=== PATIENT | male | born 1945 | race African-American/Black ===

== ENCOUNTER 2018-05-21 20:08 | Emergency (ER) | payer MEDICARE, MEDICAID ==
[~2018-05-21] VITALS: Ht 175.3 cm; Wt 71.0 kg
[2018-05-21] MEDS ORDERED: IBUPROFEN 600MG TABLET PO ONE (23:45)
[2018-05-22 01:06] VITALS: BP 147/72
== END 2018-05-22 01:09 | disposition home or self-care (01) ==
LOC: ER 20:08
DX: M25.531 Pain in right wrist (principal); H40.9 Unspecified glaucoma; F17.200 Nicotine dependence, unspecified, uncomplicated; W01.0XXA Fall on same level from slipping, tripping and stumbling without subsequent striking against object, initial encounter; Y93.89 Activity, other specified; Y92.89 Other specified places as the place of occurrence of the external cause; Y99.8 Other external cause status; Z93.3 Colostomy status; Z98.890 Other specified postprocedural states
CPT/HCPCS: 29125; 73110; 73130; 99284

== ENCOUNTER 2020-01-09 11:34 | Emergency (ER) | payer MEDICARE, MEDICAID ==
[~2020-01-09] VITALS: Ht 175.3 cm; Wt 76.4 kg
[2020-01-09 13:26] LABS: BASOPHILS % 0.3 % (0.0-2.0); EOSINOPHILS % 0.6 % (0.0-5.0); HEMATOCRIT. 40.2 % (42.0-52.0); HEMOGLOBIN. 13.9 g/dL (14.0-18.0); LYMPHOCYTES % 8.1 % (20.0-50.0); MEAN CORPUSCULAR HEMOGLOBIN 32.4 pg (28.0-32.0); MEAN CORPUSCULAR VOLUME 93.6 fL (80.0-94.0); MEAN PLATELET VOLUME 8.8 fl (7.4-10.4); MONOCYTES % 8.7 % (2.0-8.0); NEUTROPHILS % 82.3 % (40.0-76.0); PLATELET 171 x1000/uL (130-400); RED BLOOD CELL COUNT 4.29 mill/uL (4.7-6.1); RED CELL DISTRIBUTION WIDTH 12.5 % (11.6-14.6)
[2020-01-09 13:32] LABS: CHLORIDE 101 mEq/L (98-107)
[2020-01-10] MEDS ORDERED: IPRATROPIUM BROMIDE (0.02%) 0.5MG/2.5ML NEB HHN STA (01:08)
[2020-01-10] MEDS ORDERED: ALBUTEROL (0.083%) 2.5MG/3ML NEB HHN STA (01:08)
[2020-01-10 04:34] VITALS: BP 131/72
== END 2020-01-10 05:15 | disposition home or self-care (01) ==
LOC: ER 11:34
DX: J40 Bronchitis, not specified as acute or chronic (principal); F17.290 Nicotine dependence, other tobacco product, uncomplicated; H40.9 Unspecified glaucoma; Z98.890 Other specified postprocedural states; Z93.3 Colostomy status
CPT/HCPCS: 36415; 71045; 80053; 85025; 87804; 93005; 94640; 99285

== ENCOUNTER 2020-06-04 05:40 | Inpatient (IN) | payer MEDICARE, MEDICAID ==
[~2020-06-04] VITALS: Ht 175.3 cm; Wt 72.6 kg
[2020-06-04] MEDS ORDERED: SODIUM CHLORIDE 0.9% 1,000 ML IV ONE (06:48)
[2020-06-04] MEDS ORDERED: ONDANSETRON HCL 4MG/2ML INJ IV STA (06:48)
[2020-06-04] MEDS ORDERED: MORPHINE SULFATE 4 MG/ML CPJ (NOT FOR IM USE) IV STA (06:48)
[2020-06-04 06:56] LABS: BASOPHILS % 0.5 % (0.0-2.0); EOSINOPHILS % 1.3 % (0.0-5.0); HEMATOCRIT. 46.4 % (42.0-52.0); HEMOGLOBIN. 15.8 g/dL (14.0-18.0); LYMPHOCYTES % 8.3 % (20.0-50.0); MEAN CORPUSCULAR HEMOGLOBIN 32.1 pg (28.0-32.0); MEAN CORPUSCULAR VOLUME 94.5 fL (80.0-94.0); MEAN PLATELET VOLUME 8.6 fl (7.4-10.4); MONOCYTES % 3.9 % (2.0-8.0); PLATELET 196 x1000/uL (130-400); RED BLOOD CELL COUNT 4.91 mill/uL (4.7-6.1); RED CELL DISTRIBUTION WIDTH 12.6 % (11.6-14.6)
[2020-06-04 07:00] LABS: CHLORIDE 102 mEq/L (98-107)
[2020-06-04 07:02] LABS: PROTHROMBIN TIME 10.8 sec (9.6-11.0)
[2020-06-04 07:38] LABS: CLARITY URINE CLEAR (CLEAR); COLOR URINE YELLOW (YELLOW); KETONES URINE TRACE (NEGATIVE); LEUKOCYTE ESTERASE URINE NEGATIVE (NEGATIVE); NITRITE URINE NEGATIVE (NEGATIVE); OCCULT BLOOD URINE 2+ (NEGATIVE); PROTEIN URINE 1+ (NEGATIVE); SPECIFIC GRAVITY URINE 1.022 (1.005-1.030)
[2020-06-04 15:40] LABS: HEPATITIS B SURFACE ANTIGEN NEGATIVE
[2020-06-04 16:08] LABS: HEPATITIS A AB IGM NEGATIVE (NEGATIVE)
[2020-06-04] MEDS ORDERED: ONDANSETRON HCL 4MG/2ML INJ IV PRN (16:45)
[2020-06-04] MEDS ORDERED: HYDRALAZINE 20MG/ML VIAL IV PRN (16:45)
[2020-06-04] MEDS ORDERED: CLONIDINE 0.1MG TABLET PO PRN (16:45)
[2020-06-04] MEDS ORDERED: ACETAMINOPHEN 325MG TABLET PO PRN (16:45)
[2020-06-04] MEDS ORDERED: IPRATROPIUM/ALBUTEROL 0.5-3(2.5)MG/3ML NEB HHN PRN (16:45)
[2020-06-04] MEDS ORDERED: DIPHENHYDRAMINE 50MG/ML VIAL IV PRN (16:45)
[2020-06-04] MEDS: MORPHINE SULFATE 2 MG/ML CPJ (NOT FOR IM USE) IV PRN (17:34)
[2020-06-04 17:49] VITALS: BP 149/75
[2020-06-04] MEDS: ENOXAPARIN 40MG/0.4ML SYR SUBCUT SCH (18:03)
[2020-06-04] MEDS: DEXT 5%/0.45% NACL 1000ML 1,000 ML IV SCH (19:45)
[2020-06-04 20:00] VITALS: BP 127/78
[2020-06-04] MEDS: FAMOTIDINE 20MG/2ML VIAL IV SCH (20:56)
[2020-06-04] MEDS ORDERED: ZOLPIDEM TARTRATE 5MG TABLET PO PRN (21:00)
[2020-06-05] VITALS (7 sets, daily range): BP systolic 112–159; BP diastolic 69–91
[2020-06-05] MEDS: DEXT 5%/0.45% NACL 1000ML 1,000 ML IV SCH ×3 (05:20→17:42)
[2020-06-05] MEDS: MORPHINE SULFATE 2 MG/ML CPJ (NOT FOR IM USE) IV PRN ×2 (05:47→15:41)
[2020-06-05 06:52] LABS: BASOPHILS % 0.4 % (0.0-2.0); EOSINOPHILS % 5.4 % (0.0-5.0); HEMATOCRIT. 40.5 % (42.0-52.0); HEMOGLOBIN. 13.8 g/dL (14.0-18.0); MEAN PLATELET VOLUME 8.4 fl (7.4-10.4); MONOCYTES % 8.7 % (2.0-8.0); NEUTROPHILS % 62.5 % (40.0-76.0); PLATELET 124 x1000/uL (130-400); RED BLOOD CELL COUNT 4.31 mill/uL (4.7-6.1); RED CELL DISTRIBUTION WIDTH 12.5 % (11.6-14.6)
[2020-06-05 06:58] LABS: CHLORIDE 104 mEq/L (98-107)
[2020-06-05 07:10] LABS: PHOSPHORUS 3.3 mg/dL (2.5-4.9)
[2020-06-05] MEDS: FAMOTIDINE 20MG/2ML VIAL IV SCH ×2 (08:44→19:52)
[2020-06-05] MEDS: NICOTINE 14MG PATCH TD SCH (08:44)
[2020-06-05] MEDS ORDERED: DIATR MEGLU/DIATRIZOATE SOLN 120ML ONE (13:08)
[2020-06-05] MEDS: ENOXAPARIN 40MG/0.4ML SYR SUBCUT SCH (17:42)
[2020-06-06] VITALS: BP 130/69
[2020-06-06] MEDS: DEXT 5%/0.45% NACL 1000ML 1,000 ML IV SCH ×2 (01:00→08:33)
[2020-06-06 04:00] VITALS: BP 126/63
[2020-06-06 08:00] VITALS: BP 137/70
[2020-06-06] MEDS: FAMOTIDINE 20MG/2ML VIAL IV SCH (08:32)
[2020-06-06] MEDS: NICOTINE 14MG PATCH TD SCH (08:33)
[2020-06-06 12:00] VITALS: BP 148/70
[2020-06-06 16:00] VITALS: BP 147/74
[2020-06-06 16:35] VITALS: BP 147/74
== END 2020-06-06 16:55 | disposition home or self-care (01) | DRG 389 ==
LOC: ER 06:01 → 8WST 10:14 → ENRESERV 15:15
PROVIDERS: ADMIT Internal Medicine; ATTEND Internal Medicine
DX: K56.600 Partial intestinal obstruction, unspecified as to cause (principal); J84.9 Interstitial pulmonary disease, unspecified; K52.9 Noninfective gastroenteritis and colitis, unspecified; K56.7 Ileus, unspecified; B19.20 Unspecified viral hepatitis C without hepatic coma; E86.0 Dehydration; J45.909 Unspecified asthma, uncomplicated; F17.210 Nicotine dependence, cigarettes, uncomplicated; E11.65 Type 2 diabetes mellitus with hyperglycemia; K57.90 Diverticulosis of intestine, part unspecified, without perforation or abscess without bleeding; L91.0 Hypertrophic scar; Z93.3 Colostomy status; Z83.3 Family history of diabetes mellitus
CPT/HCPCS: 36415; 74018; 74176; 74249; 80053; 81003; 83036; 83735; 84100; 85025; 86705; 86709; 86803; 87340; 99285; J1650; J2270; J2405; J3490; J7030; Q9963

== ENCOUNTER 2021-06-23 03:53 | Inpatient (IN) | payer MEDICARE, MEDICAID ==
[~2021-06-23] VITALS: Ht 175.3 cm; Wt 71.3 kg
[2021-06-23] MEDS ORDERED: ONDANSETRON HCL 4MG/2ML INJ IV STA (04:38)
[2021-06-23] MEDS ORDERED: MORPHINE SULFATE 4 MG/ML CPJ (NOT FOR IM USE) IV STA (04:38)
[2021-06-23] MEDS ORDERED: FAMOTIDINE 20MG/2ML VIAL IV STA (04:38)
[2021-06-23] MEDS ORDERED: SODIUM CHLORIDE 0.9% 1,000 ML IV ONE (04:45)
[2021-06-23 04:57] LABS: BASOPHILS % 0.6 % (0.0-2.0); EOSINOPHILS % 2.1 % (0.0-5.0); HEMATOCRIT. 46.4 % (42.0-52.0); HEMOGLOBIN. 16.1 g/dL (14.0-18.0); LYMPHOCYTES % 14.7 % (20.0-50.0); MEAN CORPUSCULAR HEMOGLOBIN 32.1 pg (28.0-32.0); MEAN CORPUSCULAR VOLUME 92.6 fL (80.0-94.0); MEAN PLATELET VOLUME 8.6 fl (7.4-10.4); MONOCYTES % 5.7 % (2.0-8.0); NEUTROPHILS % 76.9 % (40.0-76.0); PLATELET 169 x1000/uL (130-400); RED BLOOD CELL COUNT 5.01 mill/uL (4.7-6.1); RED CELL DISTRIBUTION WIDTH 12.4 % (11.6-14.6)
[2021-06-23 05:03] LABS: CHLORIDE 107 mEq/L (98-107)
[2021-06-23 06:31] LABS: CLARITY URINE CLEAR (CLEAR); COLOR URINE YELLOW (YELLOW); KETONES URINE NEGATIVE (NEGATIVE); LEUKOCYTE ESTERASE URINE NEGATIVE (NEGATIVE); NITRITE URINE NEGATIVE (NEGATIVE); OCCULT BLOOD URINE 1+ (NEGATIVE); PROTEIN URINE TRACE (NEGATIVE); SPECIFIC GRAVITY URINE 1.017 (1.005-1.030)
[2021-06-23] MEDS ORDERED: MORPHINE SULFATE 4 MG/ML CPJ (NOT FOR IM USE) IV ONE (06:45)
[2021-06-23] MEDS ORDERED: HYDRALAZINE 20MG/ML VIAL IV NR (09:30)
[2021-06-23] MEDS ORDERED: HYDRALAZINE 20MG/ML VIAL IV PRN (09:45)
[2021-06-23] MEDS ORDERED: NALOXONE HCL 0.4MG/ML VIAL IV PRN (10:00)
[2021-06-23] MEDS: AMLODIPINE 10MG TABLET PO SCH (10:52)
[2021-06-23] MEDS: PANTOPRAZOLE SODIUM 40 MG/VIAL IV SCH (10:52)
[2021-06-23] MEDS: ENOXAPARIN 40MG/0.4ML SYR SUBCUT SCH (10:53)
[2021-06-23] MEDS: DEXT 5%/0.45% NACL 1000ML 1,000 ML IV SCH ×2 (10:54→23:41)
[2021-06-23] MEDS: ONDANSETRON HCL 4MG/2ML INJ IV PRN (13:17)
[2021-06-23] MEDS: CLONIDINE 0.1MG TABLET PO PRN (13:17)
[2021-06-24] VITALS (7 sets, daily range): BP systolic 95–143; BP diastolic 59–73
[2021-06-24] MEDS: HYDROMORPHONE HCL/PF 2MG/ML CPJ IV PRN ×2 (07:56→22:13)
[2021-06-24 07:57] LABS: BASOPHILS % 0.1 % (0.0-2.0); EOSINOPHILS % 1.6 % (0.0-5.0); HEMATOCRIT. 41.9 % (42.0-52.0); HEMOGLOBIN. 14.4 g/dL (14.0-18.0); LYMPHOCYTES % 13.1 % (20.0-50.0); MEAN CORPUSCULAR HEMOGLOBIN 32.2 pg (28.0-32.0); MEAN CORPUSCULAR VOLUME 93.8 fL (80.0-94.0); MEAN PLATELET VOLUME 9.1 fl (7.4-10.4); MONOCYTES % 8.7 % (2.0-8.0); NEUTROPHILS % 76.5 % (40.0-76.0); PLATELET 139 x1000/uL (130-400); RED BLOOD CELL COUNT 4.47 mill/uL (4.7-6.1); RED CELL DISTRIBUTION WIDTH 12.2 % (11.6-14.6)
[2021-06-24 08:18] LABS: CHLORIDE 103 mEq/L (98-107)
[2021-06-24] MEDS: AMLODIPINE 10MG TABLET PO SCH (09:00)
[2021-06-24] MEDS: PANTOPRAZOLE SODIUM 40 MG/VIAL IV SCH (09:19)
[2021-06-24] MEDS: ENOXAPARIN 40MG/0.4ML SYR SUBCUT SCH (09:20)
[2021-06-24] MEDS ORDERED: PNEUMOCOCCAL 23-VAL P-SAC VAC 0.5 ML IM ONE (10:00)
[2021-06-24] MEDS: DEXT 5%/0.45% NACL 1000ML 1,000 ML IV SCH ×2 (12:09→22:14)
[2021-06-24] MEDS: ONDANSETRON HCL 4MG/2ML INJ IV PRN (22:13)
[2021-06-25] VITALS: BP 154/71
[2021-06-25 04:00] VITALS: BP 153/70
[2021-06-25 08:00] VITALS: BP 137/60
[2021-06-25] MEDS: AMLODIPINE 10MG TABLET PO SCH (10:35)
[2021-06-25] MEDS: FAMOTIDINE 20MG/2ML VIAL IV SCH ×2 (10:35→20:58)
[2021-06-25] MEDS: ENOXAPARIN 40MG/0.4ML SYR SUBCUT SCH (10:36)
[2021-06-25] MEDS: KETOROLAC 15MG/ML VIAL IV PRN (10:47)
[2021-06-25 12:00] VITALS: BP 145/82
[2021-06-25] MEDS: DEXT 5%/0.45% NACL 1000ML 1,000 ML IV SCH (14:30)
[2021-06-25 16:00] VITALS: BP 117/91
[2021-06-25 20:00] VITALS: BP 107/78
[2021-06-26] VITALS: BP_SYST 105; BP_SYST 139; BP_DIAS 61; BP_DIAS 75
[2021-06-26 04:00] VITALS: BP 110/68
[2021-06-26] MEDS: DEXT 5%/0.45% NACL 1000ML 1,000 ML IV SCH (04:10)
[2021-06-26 07:58] VITALS: BP 161/70
[2021-06-26] MEDS: FAMOTIDINE 20MG/2ML VIAL IV SCH (08:07)
[2021-06-26] MEDS: KETOROLAC 15MG/ML VIAL IV PRN (08:08)
[2021-06-26] MEDS: ENOXAPARIN 40MG/0.4ML SYR SUBCUT SCH (08:08)
[2021-06-26] MEDS: AMLODIPINE 10MG TABLET PO SCH (08:08)
[2021-06-26] MEDS: CLONIDINE 0.1MG TABLET PO PRN (08:09)
[2021-06-26 10:24] VITALS: BP 132/73
== END 2021-06-26 11:15 | disposition home or self-care (01) | DRG 390 ==
LOC: ER 03:53 → MICUSO 08:38 → 7EST 22:38
PROVIDERS: ADMIT Hospitalist; ATTEND Hospitalist
DX: K56.600 Partial intestinal obstruction, unspecified as to cause (principal); E11.9 Type 2 diabetes mellitus without complications; J45.909 Unspecified asthma, uncomplicated; I10 Essential (primary) hypertension; Z82.49 Family history of ischemic heart disease and other diseases of the circulatory system; Z93.3 Colostomy status; H40.9 Unspecified glaucoma; Z98.890 Other specified postprocedural states; I16.0 Hypertensive urgency
CPT/HCPCS: 36415; 71045; 74018; 74176; 80053; 81003; 82962; 83605; 85025; 90732; 93005; 93970; 99285; C1893; C9113; J0360; J1170; J1650; J1885; J2270; J2405; J3490; J7030

== ENCOUNTER 2024-04-16 02:02 | Emergency (ER) | payer MEDICARE, MEDICAID ==
[~2024-04-16] VITALS: Ht 172.7 cm; Wt 100.0 kg
[~2024-04-16 02:02] MED LIST: AMLO5TAB88 PO; ASPI-1160 PO; GABA-532 MT
[2024-04-16 02:15] VITALS: O2SAT 100
[2024-04-16 03:10] LABS: CARBON DIOXIDE 29 mEq/L (21-32)
[2024-04-16 03:11] LABS: CALCIUM 9.4 mg/dL (8.7-10.4)
[2024-04-16 03:16] LABS: GLUCOSE 148 mg/dL (70-105); UREA NITROGEN BLOOD 19 mg/dL (9-23)
[2024-04-16 03:17] LABS: ALANINE AMINOTRANSFERASE 173 IU/L (10-49); ASPARTATE AMINOTRANSFERASE 331 IU/L (<34)
[2024-04-16 03:18] LABS: ALBUMIN 4.6 g/dL (3.2-4.8); BILIRUBIN DIRECT 1.1 mg/dL (<=3.0); BILIRUBIN TOTAL 2.2 mg/dL (0.1-1.0); PROTEIN TOTAL 7.6 g/dL (6.0-8.3)
[2024-04-16 03:19] LABS: HEMOGLOBIN. 16.3 g/dL (14.0-18.0); MEAN CORPUSCULAR HEMOGLOBIN 32.4 pg (28.0-32.0); MEAN CORPUSCULAR HGB CONC 34.7 g/dL (31.0-37.0); MEAN CORPUSCULAR VOLUME 93.2 fL (80.0-94.0); MEAN PLATELET VOLUME 8.7 fl (7.4-10.4); PLATELET 150 x1000/uL (130-400); RED BLOOD CELL COUNT 5.04 mill/uL (4.7-6.1); RED CELL DISTRIBUTION WIDTH 12.7 % (11.6-14.6); WHITE BLOOD COUNT 2.6 x1000/uL (4.5-11.0)
[2024-04-16 03:20] LABS: DIFFERENTIAL COMMENT 1
[2024-04-16 04:44] LABS: CHLORIDE 105 mEq/L (98-107); POTASSIUM 3.3 mEq/L (3.5-5.1); SODIUM 142 mEq/L (136-145)
[2024-04-16 04:47] LABS: TROPONIN I HIGH SENSITIVITY < 4 ng/L (3.0-53)
[2024-04-16] MEDS: SODIUM CHLORIDE 0.9% 1,000 ML IV ONE (05:25)
[2024-04-16] MEDS: KETOROLAC 30MG/ML VIAL IV STA (05:25)
[2024-04-16 05:30] VITALS: TEMP 98
[2024-04-16 05:30] LABS: PLATELET ESTIMATE NORMAL
[2024-04-16] MEDS ORDERED: OMEP40CA20 MT (05:49)
[2024-04-16] MEDS: KETOROLAC 15MG/ML VIAL IV NR (06:24)
[2024-04-16] MEDS: MORPHINE SULFATE 4 MG/ML INJ (FOR IV/IM USE) IV STA (06:30)
[2024-04-16] MEDS: ONDANSETRON HCL 4MG/2ML INJ IV STA (06:30)
[2024-04-16 07:35] VITALS: BP 147/76; PULSE 104; RESP 17
== END 2024-04-16 09:05 | disposition home or self-care (01) ==
LOC: ER 02:02
DX: D57.00 Hb-SS disease with crisis, unspecified (principal); E11.65 Type 2 diabetes mellitus with hyperglycemia; J45.909 Unspecified asthma, uncomplicated; I10 Essential (primary) hypertension; I25.2 Old myocardial infarction; I11.9 Hypertensive heart disease without heart failure; Z98.890 Other specified postprocedural states
CPT/HCPCS: 36415; 74176; 80048; 80076; 84484; 85025; 93005; 96361; 96374; 96375; 99285; J1885; J2270; J2405; J7030

== ENCOUNTER 2024-04-16 16:38 | Inpatient (IN) | payer MEDICARE, MEDICAID ==
[~2024-04-16] VITALS: Ht 165.1 cm; Wt 74.8 kg
[~2024-04-16 16:38] MED LIST changes: +OMEP40CA20 MT
[2024-04-16 17:13] LABS: BG BASE EXCESS -5.7 mmol/L (-2.0-2.0); BG CARBOXYHEMOGLOBIN 1.2 % (0.5-1.5); BG DEOXYHEMOGLOBIN 0.7 % (0.0-5.0); BG HCO3 ACT 18.1 mmol/L (22.0-26.0); BG METHEMOGLOBIN 0.3 % (0.0-1.5); BG OXYGEN SATURATION 99.3 % (92.0-98.5); BG OXYHEMOGLOBIN 97.8 % (94.0-97.0); BG PCO2 31.2 mmHg (35.0-45.0); BG PH 7.382 (7.350-7.450); BG PO2 196.1 mmHg (75.0-100.0); BG SAMPLE SITE RIGHT BRACHIAL; BG TOTAL HEMOGLOBIN 14.8 g/dL (12.0-18.0); BG VENT MODE MASK - NRB
[2024-04-16] MEDS: PIPERACILLIN/TAZO 3.375G/50ML 50 ML IV ONE (17:28)
[2024-04-16] MEDS: SODIUM CHLORIDE 0.9% 1,000 ML IV ONE ×2 (17:28→22:54)
[2024-04-16 17:54] LABS: HEMATOCRIT. 42.1 % (42.0-52.0); HEMOGLOBIN. 14.3 g/dL (14.0-18.0); MEAN CORPUSCULAR HEMOGLOBIN 32.4 pg (28.0-32.0); MEAN CORPUSCULAR HGB CONC 33.9 g/dL (31.0-37.0); MEAN CORPUSCULAR VOLUME 95.5 fL (80.0-94.0); PLATELET 127 x1000/uL (130-400); RED CELL DISTRIBUTION WIDTH 12.6 % (11.6-14.6); WHITE BLOOD COUNT 16.2 x1000/uL (4.5-11.0)
[2024-04-16 17:56] LABS: DIFFERENTIAL COMMENT 1
[2024-04-16 18:01] LABS: CHLORIDE 106 mEq/L (98-107); POTASSIUM 3.7 mEq/L (3.5-5.1); SODIUM 140 mEq/L (136-145)
[2024-04-16 18:02] LABS: CALCIUM 8.8 mg/dL (8.7-10.4); CARBON DIOXIDE 23 mEq/L (21-32)
[2024-04-16 18:07] LABS: CREATININE 1.1 mg/dL (0.6-1.3); GLUCOSE 150 mg/dL (70-105); UREA NITROGEN BLOOD 25 mg/dL (9-23)
[2024-04-16 18:08] LABS: ETHANOL BLOOD < 10 mg/dL (<10)
[2024-04-16 18:09] LABS: ALANINE AMINOTRANSFERASE 438 IU/L (10-49); ALBUMIN 4.4 g/dL (3.2-4.8); ASPARTATE AMINOTRANSFERASE 470 IU/L (<34); INR 1.2; PROTEIN TOTAL 6.9 g/dL (6.0-8.3); PROTHROMBIN TIME 13.1 sec (9.6-11.0); TROPONIN I HIGH SENSITIVITY 13 ng/L (3.0-53)
[2024-04-16 18:13] LABS: BILIRUBIN TOTAL 4.4 mg/dL (0.1-1.0)
[2024-04-16] MEDS: ACETAMINOPHEN 1000MG/100ML 100 ML IV ONE (18:15)
[2024-04-16 18:20] LABS: LACTIC ACID 6.2 mmol/L (0.4-2.0)
[2024-04-16 18:23] LABS: PLATELET ESTIMATE DECREASED
[2024-04-16 19:26] LABS: BILIRUBIN DIRECT 3.1 mg/dL (<=3.0)
[2024-04-16 20:27] LABS: TROPONIN I HIGH SENSITIVITY 29 ng/L (3.0-53)
[2024-04-16] MEDS ORDERED: DOCUSATE SODIUM 100MG CAPSULE PO PRN (22:00)
[2024-04-16] MEDS ORDERED: GUAIFENESIN 200MG/10ML SUGAR FREE UDC PO PRN (22:00)
[2024-04-16] MEDS ORDERED: MAGNESIUM/ALUMINUM HYDROXIDE/SIMETHICONE 30ML UDC PO PRN (22:00)
[2024-04-16] MEDS ORDERED: IPRATROPIUM/ALBUTEROL 0.5-3(2.5)MG/3ML NEB HHN PRN (22:00)
[2024-04-16] MEDS ORDERED: ONDANSETRON HCL 4MG/2ML INJ IV PRN (22:00)
[2024-04-16] MEDS: LACTATED RINGERS 1,000 ML IV SCH (22:54)
[2024-04-16 23:32] LABS: FOLIC ACID (FOLATE) SERUM 17.91 ng/mL (>5.38); VITAMIN B12 SERUM 615 pg/mL (211-911)
[2024-04-17] MEDS: ACETYLCYSTEINE 200MG/ML 20% VIAL 10ML INH SCH (00:54)
[2024-04-17 03:03] LABS: AMMONIA < 17 uMol/L (<32); TROPONIN I HIGH SENSITIVITY 24 ng/L (3.0-53)
[2024-04-17 03:04] LABS: CREATINE KINASE 328 IU/L (46-171); PHOSPHORUS 4.5 mg/dL (2.5-4.9)
[2024-04-17] MEDS: ACETAMINOPHEN 325MG TABLET PO PRN (04:54)
[2024-04-17] MEDS ORDERED: PIPERACILLIN/TAZO 3.375G/50ML 50 ML IV SCH (06:00)
[2024-04-17] MEDS: PIPERACILLIN/TAZO 3.375G/50ML IV SCH (06:16)
[2024-04-17] MEDS: CLONIDINE 0.1MG TABLET PO PRN (06:22)
[2024-04-17] MEDS: INSULIN LISPRO 100 UNITS/ML SUBCUT SCH (08:20)
[2024-04-17 08:52] LABS: HEMATOCRIT. 38.1 % (42.0-52.0); HEMOGLOBIN. 12.9 g/dL (14.0-18.0); MEAN CORPUSCULAR HEMOGLOBIN 32.2 pg (28.0-32.0); MEAN CORPUSCULAR HGB CONC 33.9 g/dL (31.0-37.0); MEAN CORPUSCULAR VOLUME 94.9 fL (80.0-94.0); PLATELET 82 x1000/uL (130-400); RED BLOOD CELL COUNT 4.02 mill/uL (4.7-6.1); WHITE BLOOD COUNT 15.4 x1000/uL (4.5-11.0)
[2024-04-17 08:58] LABS: CARBON DIOXIDE 26 mEq/L (21-32); CHLORIDE 108 mEq/L (98-107); POTASSIUM 4.9 mEq/L (3.5-5.1); SODIUM 140 mEq/L (136-145)
[2024-04-17 08:59] LABS: CALCIUM 8.4 mg/dL (8.7-10.4)
[2024-04-17] MEDS: PANTOPRAZOLE SODIUM 40 MG/VIAL IV SCH (09:02)
[2024-04-17] MEDS: BLOOD SUGAR DIAGNOSTIC STRIP TEST SCH (09:03)
[2024-04-17 09:04] LABS: GLUCOSE 104 mg/dL (70-105); TRIGLYCERIDE 82 mg/dL (0-150)
[2024-04-17 09:04] LABS: CLARITY URINE CLEAR (CLEAR); COLOR URINE DARK YELLOW (YELLOW); GLUCOSE URINE NEGATIVE (NEGATIVE); KETONES URINE NEGATIVE (NEGATIVE); PH URINE 5.5 (4.5-8.0); PROTEIN URINE 2+ (NEGATIVE)
[2024-04-17 09:05] LABS: LEUKOCYTE ESTERASE URINE TRACE (NEGATIVE); NITRITE URINE POSITIVE (NEGATIVE); OCCULT BLOOD URINE 1+ (NEGATIVE)
[2024-04-17 09:05] LABS: LDL CHOLESTEROL 17 mg/dL (5-100); UREA NITROGEN BLOOD 23 mg/dL (9-23)
[2024-04-17 09:06] LABS: CHOLESTEROL 77 mg/dL (<200); CREATINE KINASE 347 IU/L (46-171); DIFFERENTIAL COMMENT 1
[2024-04-17 09:07] LABS: HDL CHOLESTEROL 31 mg/dL (>55)
[2024-04-17 09:10] LABS: T4 FREE 0.88 ng/dL (0.89-1.76)
[2024-04-17 09:11] LABS: THYROID STIMULATING HORMONE 2.47 uIU/mL (0.55-4.78)
[2024-04-17 09:25] LABS: *AMPHETAMINES SCREEN URINE NEGATIVE (NEGATIVE); *BARBITURATES SCREEN URINE NEGATIVE (NEGATIVE); *BENZODIAZEPINES SCREEN URINE NEGATIVE (NEGATIVE); *COCAINE SCREEN URINE NEGATIVE (NEGATIVE)
[2024-04-17 09:26] LABS: CANNABINOID URINE SCREEN NEGATIVE (NEGATIVE); ECSTASY MDMA SCREEN URINE NEGATIVE (NEGATIVE); METHADONE URINE SCREEN NEGATIVE (NEGATIVE); OPIATES URINE SCREEN PRESUMPTIVE POSITIVE (NEGATIVE); PHENCYCLIDINE URINE SCREEN NEGATIVE (NEGATIVE)
[2024-04-17 09:32] LABS: COARSE GRANULAR CASTS URINE 0-5 /lpf
[2024-04-17 09:35] LABS: BACTERIA URINE TRACE; SQUAMOUS EPITHELIAL CELL URINE 2+ /lpf (RARE/1+)
[2024-04-17 12:05] LABS: PLATELET ESTIMATE DECREASED; TOXIC VACUOLATION FEW
[2024-04-17] MEDS: DEXTROSE 50% WATER 50ML SYRINGE IV PRN (13:50)
[2024-04-17] MEDS: MAGNESIUM 1 G PREMIX 100 ML IV NR (15:06)
[2024-04-17 17:41] VITALS: PULSE 114; RESP 35; O2SAT 95
[2024-04-17] MEDS: IPRATROPIUM/ALBUTEROL 0.5-3(2.5)MG/3ML NEB HHN SCH (17:41)
[2024-04-17 18:53] LABS: BG BASE EXCESS -1.4 mmol/L (-2.0-2.0); BG CARBOXYHEMOGLOBIN 0.9 % (0.5-1.5); BG DEOXYHEMOGLOBIN 7.4 % (0.0-5.0); BG FRACTION INSPIRED OXYGEN 75; BG METHEMOGLOBIN 0.3 % (0.0-1.5); BG OXYGEN SATURATION 92.5 % (92.0-98.5); BG OXYHEMOGLOBIN 91.4 % (94.0-97.0); BG PCO2 37.8 mmHg (35.0-45.0); BG PH 7.402 (7.350-7.450); BG SAMPLE SITE RIGHT RADIAL; BG TOTAL HEMOGLOBIN 14.6 g/dL (12.0-18.0); BG VENT MODE MASK - SIMPLE
[2024-04-17] MEDS ORDERED: NALOXONE HCL 0.4MG/ML VIAL IV PRN (19:15)
[2024-04-17 19:30] VITALS: RESP 46
[2024-04-17] MEDS: NICARDIPINE 40MG/200ML PREMIX 200 ML IV PRN (19:30)
[2024-04-17] MEDS: MORPHINE SULFATE 2 MG/ML CPJ (NOT FOR IM USE) IV PRN (19:32)
[2024-04-17] MEDS ORDERED: PROPOFOL 10MG/ML 100ML 100 ML IV PRN (19:45)
[2024-04-17] MEDS ORDERED: FENTANYL 2500MCG/250ML PMX 250 ML IV ONE (19:45)
[2024-04-17] MEDS ORDERED: FENTANYL CITRATE 2,500 MCG in SODIUM CHLORIDE 0.9% 200 ML IV PRN (19:45)
[2024-04-17 21:29] LABS: BG BASE EXCESS -1.5 mmol/L (-2.0-2.0); BG CARBOXYHEMOGLOBIN 0.5 % (0.5-1.5); BG DEOXYHEMOGLOBIN 8.7 % (0.0-5.0); BG FRACTION INSPIRED OXYGEN 60; BG HCO3 ACT 22.7 mmol/L (22.0-26.0); BG METHEMOGLOBIN 0.3 % (0.0-1.5); BG OXYGEN SATURATION 91.2 % (92.0-98.5); BG OXYHEMOGLOBIN 90.5 % (94.0-97.0); BG PCO2 36.4 mmHg (35.0-45.0); BG PH 7.412 (7.350-7.450); BG PO2 59.2 mmHg (75.0-100.0); BG SAMPLE SITE RIGHT RADIAL; BG TOTAL HEMOGLOBIN 13.2 g/dL (12.0-18.0); BG TOTAL RESPIRATORY RATE 22 b/min; BG VENT MODE MASK - BIPAP
[2024-04-17] MEDS ORDERED: ACETYLCYSTEINE 200MG/ML 20% VIAL 4ML INH SCH (22:00)
[2024-04-17 23:05] VITALS: RESP 24
[2024-04-17] MEDS: PIPERACILLIN/TAZO 3.375G/50ML 50 ML IV SCH (23:59)
[2024-04-18] VITALS (17 sets, daily range): BP systolic 107–155; BP diastolic 60–75; PULSE 67–87; RESP 16–30; TEMP 97.6–99.3; O2SAT 100
[2024-04-18 07:20] LABS: HEMATOCRIT. 34.6 % (42.0-52.0); HEMOGLOBIN. 11.9 g/dL (14.0-18.0); MEAN CORPUSCULAR HEMOGLOBIN 32.2 pg (28.0-32.0); MEAN CORPUSCULAR HGB CONC 34.4 g/dL (31.0-37.0); MEAN CORPUSCULAR VOLUME 93.6 fL (80.0-94.0); PLATELET 73 x1000/uL (130-400); RED CELL DISTRIBUTION WIDTH 12.8 % (11.6-14.6); WHITE BLOOD COUNT 12.2 x1000/uL (4.5-11.0)
[2024-04-18 07:33] LABS: INR 1.2; PROTHROMBIN TIME 13.3 sec (9.6-11.0)
[2024-04-18 07:41] LABS: CHLORIDE 107 mEq/L (98-107); POTASSIUM 3.6 mEq/L (3.5-5.1); SODIUM 140 mEq/L (136-145)
[2024-04-18 07:42] LABS: CALCIUM 8.4 mg/dL (8.7-10.4); CARBON DIOXIDE 26 mEq/L (21-32)
[2024-04-18 07:47] LABS: CREATININE 0.8 mg/dL (0.6-1.3); DIFFERENTIAL COMMENT 1; GLUCOSE 132 mg/dL (70-105); TRIGLYCERIDE 119 mg/dL (0-150); UREA NITROGEN BLOOD 27 mg/dL (9-23)
[2024-04-18 07:49] LABS: ALANINE AMINOTRANSFERASE 235 IU/L (10-49); ALBUMIN 3.2 g/dL (3.2-4.8); ASPARTATE AMINOTRANSFERASE 194 IU/L (<34); BILIRUBIN TOTAL 4.4 mg/dL (0.1-1.0); PROTEIN TOTAL 5.6 g/dL (6.0-8.3)
[2024-04-18 08:16] LABS: HEPATITIS B SURFACE ANTIGEN NEGATIVE (Negative)
[2024-04-18 08:36] LABS: HEPATITIS A AB IGM NEGATIVE (Negative)
[2024-04-18 08:38] LABS: HEPATITIS B CORE AB IGM NEGATIVE (Negative)
[2024-04-18 08:39] LABS: HEPATITIS C AB REACTIVE (Pos) (Negative)
[2024-04-18 10:11] LABS: BG BASE EXCESS 1.4 mmol/L (-2.0-2.0); BG CARBOXYHEMOGLOBIN 0.1 % (0.5-1.5); BG DEOXYHEMOGLOBIN 1.5 % (0.0-5.0); BG FRACTION INSPIRED OXYGEN 50; BG HCO3 ACT 25.9 mmol/L (22.0-26.0); BG METHEMOGLOBIN 0.3 % (0.0-1.5); BG OXYGEN SATURATION 98.5 % (92.0-98.5); BG OXYHEMOGLOBIN 98.1 % (94.0-97.0); BG PCO2 40.5 mmHg (35.0-45.0); BG PH 7.424 (7.350-7.450); BG PO2 138.9 mmHg (75.0-100.0); BG SAMPLE SITE LEFT RADIAL; BG TOTAL HEMOGLOBIN 13.1 g/dL (12.0-18.0); BG TOTAL RESPIRATORY RATE 22 b/min; BG VENT MODE MASK - BIPAP
[2024-04-18 11:22] LABS: PLATELET ESTIMATE SLIGHTLY DECREASED
[2024-04-18] MEDS: DEXT 5%/LACTATED RINGERS 1,000 ML IV SCH (11:58)
[2024-04-18] MEDS: ACETYLCYSTEINE 200MG/ML 20% VIAL 4ML INH SCH (14:56)
[2024-04-19 08:08] LABS: ALPHA FETOPROTEIN TUMOR MARKER < 1.8 ng/mL (0.0-8.4); CA 19-9 1104 U/mL (0-35)
== END 2024-04-18 23:43 | disposition short-term general hospital (02) | DRG 871 ==
LOC: ER 16:38 → 5WST 20:42 → 5EST 04-18 01:46
PROVIDERS: ADMIT Hospitalist; ATTEND Hospitalist
PROC: 5A09357 Assistance with Respiratory Ventilation, Less than 24 Consecutive Hours, Continuous Positive Airway Pressure (ICD-10-PCS; principal; 2024-04-18)
DX: A41.59 Other Gram-negative sepsis (principal); G93.41 Metabolic encephalopathy; J80 Acute respiratory distress syndrome; R65.21 Severe sepsis with septic shock; N39.0 Urinary tract infection, site not specified; K80.43 Calculus of bile duct with acute cholecystitis with obstruction; E78.5 Hyperlipidemia, unspecified; E11.9 Type 2 diabetes mellitus without complications; D53.9 Nutritional anemia, unspecified; I11.0 Hypertensive heart disease with heart failure; K57.30 Diverticulosis of large intestine without perforation or abscess without bleeding; B19.20 Unspecified viral hepatitis C without hepatic coma; Z20.822 Contact with and (suspected) exposure to COVID-19; D69.6 Thrombocytopenia, unspecified; H40.9 Unspecified glaucoma; I25.10 Atherosclerotic heart disease of native coronary artery without angina pectoris; I25.2 Old myocardial infarction; I50.9 Heart failure, unspecified; J44.89 Other specified chronic obstructive pulmonary disease; Z79.02 Long term (current) use of antithrombotics/antiplatelets; Z79.82 Long term (current) use of aspirin; Z82.49 Family history of ischemic heart disease and other diseases of the circulatory system; Z90.49 Acquired absence of other specified parts of digestive tract; Z93.3 Colostomy status; Z95.1 Presence of aortocoronary bypass graft
CPT/HCPCS: 36415; 36600; 71045; 74018; 74176; 74181; 76705; 80048; 80053; 80061; 80076; 80305; 80320; 81003; 82105; 82140; 82248; 82375; 82550; 82607; 82746; 82805; 82962; 83036; 83605; 83735; 83880; 84100; 84145; 84439; 84443; 84478; 84484; 85025; 86301; 86705; 86709; 87186; 87340; 87426; 93005; 93970; 94640; 94660; 96361; 96374; 96375; 99285; 99291; C9113; J1885; J2270; J2405; J2543; J3475; J7030; J7121; J7608; G0480; J0131

== ENCOUNTER 2024-08-21 12:05 | Inpatient (IN) | payer MEDICARE, MEDICAID ==
[~2024-08-21] VITALS: Ht 175.3 cm; Wt 73.0 kg
[2024-08-21 12:48] LABS: BASOPHILS % 0.6 % (0.0-2.0); EOSINOPHILS % 3.2 % (0.0-5.0); HEMATOCRIT. 44.5 % (42.0-52.0); HEMOGLOBIN. 14.8 g/dL (14.0-18.0); LYMPHOCYTES % 19.7 % (20.0-50.0); MEAN CORPUSCULAR HEMOGLOBIN 32.3 pg (28.0-32.0); MEAN CORPUSCULAR HGB CONC 33.3 g/dL (31.0-37.0); MEAN CORPUSCULAR VOLUME 96.9 fL (80.0-94.0); MEAN PLATELET VOLUME 8.4 fl (7.4-10.4); MONOCYTES % 9.1 % (2.0-8.0); NEUTROPHILS % 67.4 % (40.0-76.0); PLATELET 173 x1000/uL (130-400); RED BLOOD CELL COUNT 4.59 mill/uL (4.7-6.1); RED CELL DISTRIBUTION WIDTH 12.7 % (11.6-14.6); WHITE BLOOD COUNT 6.3 x1000/uL (4.5-11.0)
[2024-08-21 12:53] LABS: CHLORIDE 107 mEq/L (98-107); POTASSIUM 4.2 mEq/L (3.5-5.1); SODIUM 140 mEq/L (136-145)
[2024-08-21 12:54] LABS: CALCIUM 9.3 mg/dL (8.7-10.4); CARBON DIOXIDE 29 mEq/L (21-32)
[2024-08-21 12:59] LABS: CREATININE 0.9 mg/dL (0.6-1.3); GLUCOSE 114 mg/dL (70-105); UREA NITROGEN BLOOD 18 mg/dL (9-23)
[2024-08-21 13:01] LABS: ALANINE AMINOTRANSFERASE 10 IU/L (10-49); ALBUMIN 4.4 g/dL (3.2-4.8); ASPARTATE AMINOTRANSFERASE 17 IU/L (<34)
[2024-08-21 13:34] LABS: TROPONIN I HIGH SENSITIVITY < 4 ng/L (3.0-53)
[2024-08-21] MEDS ORDERED: GUAIFENESIN 200MG/10ML SUGAR FREE UDC PO PRN (14:30)
[2024-08-21] MEDS ORDERED: IPRATROPIUM/ALBUTEROL 0.5-3(2.5)MG/3ML NEB HHN PRN (14:30)
[2024-08-21] MEDS ORDERED: MAGNESIUM/ALUMINUM HYDROXIDE/SIMETHICONE 30ML UDC PO PRN (14:30)
[2024-08-21] MEDS ORDERED: HYDROCODONE/ACETAMINOPHEN 5/325MG TABLET PO PRN (14:30)
[2024-08-21] MEDS ORDERED: ONDANSETRON HCL 4MG/2ML INJ IV PRN (14:30)
[2024-08-21] MEDS ORDERED: CLONIDINE 0.1MG TABLET PO PRN (14:30)
[2024-08-21] MEDS ORDERED: ACETAMINOPHEN 325MG TABLET PO PRN ×2 (14:30)
[2024-08-21] MEDS ORDERED: DEXTROSE 50% WATER 50ML SYRINGE IV PRN (14:30)
[2024-08-21] MEDS ORDERED: DOCUSATE SODIUM 100MG CAPSULE PO PRN (14:30)
[2024-08-21] MEDS ORDERED: NITROGLYCERIN 0.4MG TABLET SL SL PRN (14:45)
[2024-08-21] MEDS ORDERED: MORPHINE SULFATE 2 MG/ML INJ (NOT FOR IM USE) IV PRN (14:45)
[2024-08-21] MEDS: ASPIRIN 325MG EC TABLET PO NR (15:00)
[2024-08-21] MEDS: ENOXAPARIN 40MG/0.4ML SYR SUBCUT SCH (15:00)
[2024-08-21] MEDS: METHYLPREDNISOLONE SOD SUCC 40MG/ML (ACT-O-VIAL) IV SCH (15:00)
[2024-08-21] MEDS: AZITHROMYCIN 500MG/250ML 250 ML IV SCH (15:00)
[2024-08-21] MEDS: BUDESONIDE 0.5MG/2ML NEB HHN NR (16:05)
[2024-08-21] MEDS: IPRATROPIUM/ALBUTEROL 0.5-3(2.5)MG/3ML NEB HHN SCH (16:05)
[2024-08-21 16:06] VITALS: PULSE 57; RESP 18; O2SAT 100
[2024-08-21] MEDS: BLOOD SUGAR DIAGNOSTIC STRIP TEST SCH (17:02)
[2024-08-21 18:15] LABS: TROPONIN I HIGH SENSITIVITY < 4 ng/L (3.0-53)
[2024-08-21 20:22] VITALS: PULSE 66; RESP 18; O2SAT 100
[2024-08-21 21:25] VITALS: BP 134/65; PULSE 103; RESP 20; TEMP 36.61404; TEMP 36.6404; O2SAT 98
[2024-08-21] MEDS: ATORVASTATIN CALCIUM 40MG TABLET PO SCH (22:28)
[2024-08-21] MEDS: METOPROLOL TARTRATE 25MG TABLET PO SCH (22:28)
[2024-08-21] MEDS: INSULIN LISPRO 100 UNITS/ML SUBCUT SCH (22:29)
[2024-08-22] VITALS (10 sets, daily range): BP systolic 110–133; BP diastolic 57–73; PULSE 54–104; RESP 18–22; TEMP 36.28068–36.72516; O2SAT 97–99
[2024-08-22 00:18] LABS: TROPONIN I HIGH SENSITIVITY 4 ng/L (3.0-53)
[2024-08-22 00:22] LABS: CREATINE KINASE 46 IU/L (46-171)
[2024-08-22 07:01] LABS: HEMATOCRIT. 43.3 % (42.0-52.0); HEMOGLOBIN. 14.5 g/dL (14.0-18.0); MEAN CORPUSCULAR HEMOGLOBIN 32.1 pg (28.0-32.0); MEAN CORPUSCULAR HGB CONC 33.4 g/dL (31.0-37.0); MEAN CORPUSCULAR VOLUME 96.1 fL (80.0-94.0); MEAN PLATELET VOLUME 8.8 fl (7.4-10.4); PLATELET 180 x1000/uL (130-400); RED BLOOD CELL COUNT 4.51 mill/uL (4.7-6.1); RED CELL DISTRIBUTION WIDTH 12.8 % (11.6-14.6); WHITE BLOOD COUNT 10.1 x1000/uL (4.5-11.0)
[2024-08-22 07:17] LABS: CALCIUM 9.9 mg/dL (8.7-10.4); CARBON DIOXIDE 26 mEq/L (21-32); CHLORIDE 108 mEq/L (98-107); POTASSIUM 5.1 mEq/L (3.5-5.1); SODIUM 140 mEq/L (136-145)
[2024-08-22 07:19] LABS: DIFFERENTIAL COMMENT 1
[2024-08-22 07:21] LABS: TROPONIN I HIGH SENSITIVITY 4 ng/L (3.0-53)
[2024-08-22 07:23] LABS: CREATINE KINASE 39 IU/L (46-171); GLUCOSE 181 mg/dL (70-105); TRIGLYCERIDE 40 mg/dL (0-150); UREA NITROGEN BLOOD 23 mg/dL (9-23)
[2024-08-22 07:24] LABS: LDL CHOLESTEROL 100 mg/dL (5-100)
[2024-08-22 07:25] LABS: CHOLESTEROL 169 mg/dL (<200); HDL CHOLESTEROL 59 mg/dL (>55); T4 FREE 0.79 ng/dL (0.89-1.76)
[2024-08-22] MEDS: LISINOPRIL 5MG TABLET PO SCH (09:16)
[2024-08-22] MEDS: AMLODIPINE 5MG TABLET PO SCH (09:16)
[2024-08-22] MEDS: ASPIRIN 81MG EC TABLET PO SCH (09:16)
[2024-08-22 09:31] LABS: BG BASE EXCESS -6.1 mmol/L (-2.0-3.0); BG CARBOXYHEMOGLOBIN 0.5 % (0.5-1.5); BG DEOXYHEMOGLOBIN 2.6 % (0.0-5.0); BG FRACTION INSPIRED OXYGEN 28; BG HCO3 ACT 18.4 mmol/L (21.0-28.0); BG METHEMOGLOBIN 0.3 % (0.5-1.5); BG OXYGEN SATURATION 97.4 % (94.0-98.0); BG OXYHEMOGLOBIN 96.6 % (94.0-98.0); BG PCO2 33.4 mmHg (35.0-48.0); BG PH 7.358 (7.350-7.450); BG PO2 101.6 mmHg (83.0-108.0); BG SAMPLE SITE RIGHT BRACHIAL; BG TOTAL HEMOGLOBIN 14.8 g/dL (13.5-17.5); BG VENT MODE NASAL CANNULA
[2024-08-22] MEDS: INSULIN GLARGINE 100 UNITS/ML SUBCUT SCH (11:39)
[2024-08-22] MEDS: AZITHROMYCIN 500MG/250ML 250 ML IV SCH (16:45)
[2024-08-22 18:14] LABS: PLATELET ESTIMATE NORMAL
[2024-08-23] VITALS (7 sets, daily range): BP systolic 109–145; BP diastolic 53–67; PULSE 62–82; RESP 17–20; TEMP 36.28068–36.78072; O2SAT 96–100
[2024-08-23] MEDS ORDERED: IOHEXOL-350 100 ML BOTTLE ONE (03:50)
[2024-08-23 08:05] LABS: CALCIUM 9.9 mg/dL (8.7-10.4); CARBON DIOXIDE 25 mEq/L (21-32); CHLORIDE 105 mEq/L (98-107); POTASSIUM 5.3 mEq/L (3.5-5.1); SODIUM 137 mEq/L (136-145)
[2024-08-23 08:11] LABS: GLUCOSE 140 mg/dL (70-105); UREA NITROGEN BLOOD 26 mg/dL (9-23)
[2024-08-23 08:13] LABS: PHOSPHORUS 3.8 mg/dL (2.5-4.9)
[2024-08-23 08:29] LABS: HEMOGLOBIN. 14.6 g/dL (14.0-18.0); MEAN CORPUSCULAR HEMOGLOBIN 31.8 pg (28.0-32.0); MEAN CORPUSCULAR HGB CONC 33.1 g/dL (31.0-37.0); MEAN PLATELET VOLUME 9.3 fl (7.4-10.4); PLATELET 197 x1000/uL (130-400); RED BLOOD CELL COUNT 4.58 mill/uL (4.7-6.1); RED CELL DISTRIBUTION WIDTH 12.9 % (11.6-14.6)
[2024-08-23 08:43] LABS: DIFFERENTIAL COMMENT 1
[2024-08-23] MEDS: INSULIN LISPRO 100 UNITS/ML SUBCUT SCH (09:44)
[2024-08-23 18:39] LABS: PLATELET ESTIMATE NORMAL
[2024-08-23] MEDS: BUDESONIDE 0.5MG/2ML NEB HHN SCH (19:51)
[2024-08-23] MEDS ORDERED: METHYLPREDNISOLONE SOD SUCC 40MG/ML (ACT-O-VIAL) IV SCH (21:00)
[2024-08-24] VITALS: BP 131/72; PULSE 65; RESP 20; TEMP 36.9474; O2SAT 99
[2024-08-24 02:47] VITALS: PULSE 61; RESP 18; O2SAT 99
[2024-08-24 04:00] VITALS: BP 133/68; PULSE 64; RESP 20; TEMP 36.3918; O2SAT 99
[2024-08-24 06:54] LABS: CHLORIDE 104 mEq/L (98-107); POTASSIUM 5.1 mEq/L (3.5-5.1); SODIUM 137 mEq/L (136-145)
[2024-08-24 06:55] LABS: CARBON DIOXIDE 27 mEq/L (21-32)
[2024-08-24 06:56] LABS: CALCIUM 9.7 mg/dL (8.7-10.4)
[2024-08-24 07:00] LABS: CREATININE 0.9 mg/dL (0.6-1.3); GLUCOSE 109 mg/dL (70-105); UREA NITROGEN BLOOD 25 mg/dL (9-23)
[2024-08-24 07:04] LABS: HEMATOCRIT. 46.2 % (42.0-52.0); HEMOGLOBIN. 15.2 g/dL (14.0-18.0); MEAN CORPUSCULAR HEMOGLOBIN 31.7 pg (28.0-32.0); MEAN CORPUSCULAR VOLUME 96.1 fL (80.0-94.0); MEAN PLATELET VOLUME 9.5 fl (7.4-10.4); PLATELET 167 x1000/uL (130-400); RED CELL DISTRIBUTION WIDTH 12.7 % (11.6-14.6); WHITE BLOOD COUNT 13.6 x1000/uL (4.5-11.0)
[2024-08-24 07:17] LABS: DIFFERENTIAL COMMENT 1
[2024-08-24 08:00] VITALS: BP 133/73; PULSE 61; RESP 20; TEMP 37.00296; O2SAT 98
[2024-08-24] MEDS: PREDNISONE 10MG TABLET PO SCH (08:51)
[2024-08-24 10:55] VITALS: BP 133/73; PULSE 61; TEMP 98.6; O2SAT 98
[2024-08-24 12:00] VITALS: BP 134/63; PULSE 62; RESP 18; TEMP 37.05852; O2SAT 96
[2024-08-24 18:10] LABS: PLATELET ESTIMATE NORMAL
== END 2024-08-24 13:04 | disposition home health service (06) | DRG 189 ==
LOC: ER 12:05 → EDBEDREQ 13:00 → 7WST 15:49 → EDBEDREQ 15:52
PROVIDERS: ADMIT Internal Medicine; ATTEND Internal Medicine
DX: J96.01 Acute respiratory failure with hypoxia (principal); I21.4 Non-ST elevation (NSTEMI) myocardial infarction; J44.1 Chronic obstructive pulmonary disease with (acute) exacerbation; I10 Essential (primary) hypertension; E11.9 Type 2 diabetes mellitus without complications; I25.119 Atherosclerotic heart disease of native coronary artery with unspecified angina pectoris; E78.5 Hyperlipidemia, unspecified; H40.9 Unspecified glaucoma; H91.92 Unspecified hearing loss, left ear; Z79.82 Long term (current) use of aspirin; Z79.899 Other long term (current) drug therapy; Z82.49 Family history of ischemic heart disease and other diseases of the circulatory system; Z86.74 Personal history of sudden cardiac arrest; Z93.3 Colostomy status; Z95.1 Presence of aortocoronary bypass graft
CPT/HCPCS: 36415; 36600; 71045; 71275; 80048; 80053; 80061; 82375; 82550; 82805; 82962; 83036; 83735; 83880; 84100; 84439; 84443; 84484; 85025; 85379; 93005; 93970; 94640; 97166; 99291; C1893; J0456; J1650; J1815; J2920; J7512; J7626; Q9967

== ENCOUNTER → 2025-01-16 | Outpatient (CLI) | payer MEDICARE, MEDICAID ==
[~2025-01-16] MED LIST changes: +GABA-1180 MT; -GABA-532 MT
== END | disposition home or self-care (01) ==
LOC: RAD 11:04
PROVIDERS: ATTEND Internal Medicine Critical Care Medicine
DX: R06.02 Shortness of breath (principal)
CPT/HCPCS: 71046

== ENCOUNTER → 2025-05-22 | Outpatient (CLI) | payer MEDICARE, MEDICAID | END | disposition home or self-care (01) | LOC: CT 09:13 | PROVIDERS: ATTEND Internal Medicine Critical Care Medicine | DX: R91.8 Other nonspecific abnormal finding of lung field (principal); M19.011 Primary osteoarthritis, right shoulder; M19.012 Primary osteoarthritis, left shoulder; M47.814 Spondylosis without myelopathy or radiculopathy, thoracic region | CPT/HCPCS: 71250 ==